=== PATIENT | female | born 1955 | race Two or more races ===

== ENCOUNTER 2023-11-21 08:30 | Outpatient (CLI) | payer MEDICARE, BC | END 2023-11-21 23:59 | disposition home or self-care (01) | LOC: VAS 08:30 | PROVIDERS: ATTEND Registered Nurse | DX: M79.604 Pain in right leg (principal); M79.605 Pain in left leg | CPT/HCPCS: 93970 ==

== ENCOUNTER 2023-12-08 10:51 | Outpatient (CLI) | payer MEDICARE, BC | END 2023-12-08 23:59 | disposition home or self-care (01) | LOC: RAD 10:51 | PROVIDERS: ATTEND Registered Nurse | DX: M77.31 Calcaneal spur, right foot (principal); M79.604 Pain in right leg | CPT/HCPCS: 73600; 73620 ==

== ENCOUNTER 2024-01-25 12:00 | Outpatient (CLI) | payer MEDICARE, BC | END 2024-01-25 23:59 | disposition home or self-care (01) | LOC: MRI02 12:00 | PROVIDERS: ATTEND Pediatrics Sports Medicine | DX: M71.21 Synovial cyst of popliteal space [Baker], right knee (principal); M22.41 Chondromalacia patellae, right knee; M25.561 Pain in right knee; M25.461 Effusion, right knee | CPT/HCPCS: 73721 ==